=== PATIENT | male | born 1965 | race Caucasian/White ===

== ENCOUNTER 2022-06-28 15:31 | Outpatient (CLI) | payer BC, SELFPAY ==
--- OUTSIDE RECORDS SUMMARY | 2022-06-28 08:05 | XMS_ITS | Encounter Summary ---
:1965 Author Organization [place] Address [address] [place] [id number] Care Team Providers Name Role Phone [facility]- Encounter Details Date Type Department Care Team Description 11/30/2020 Travel Social History Tobacco Use Types Packs/Day Years Used Date Smoking Tobacco: Never Assessed Sex Assigned at Date Recorded Not on file COVID-19 Exposure Response Date Recorded In the last month, have you been in contact with No / Unsure 11/30/2020 1:25 PM CDT someone who was confirmed or suspected to have Coronavirus / COVID-19? documented as of this encounter Plan of Treatment Not on filedocumented as of this encounter Visit Diagnoses Not on filedocumented in this encounter Care Teams Public Health Technologist Relationship Specialty Start Date End Date [facility] PCP - General 11/30/20 [facility]- [address] [place] [address] documented as of this encounter
--- OUTSIDE RECORDS SUMMARY | 2022-06-28 08:05 | XMS_ITS | Encounter Summary ---
:1965 Author Organization [place] Address [address] [place] [id number] Care Team Providers Name Role Phone [facility]- Reason for Visit CV Testing (Routine) - Closed Specialty Diagnoses / Procedures Referred By Contact Refer red To Contact Cardiology Diagnoses Near syncope Chest pain Thong Phan, [facility] Procedures Echo Stress Echocardiogram [facility] DOPPLER ECHO PULSED, F/U OR LIMITED [facility] DOPPLER ECHO COLOR FLOW VELOCITY MAP [facility] ECHO HEART XTHORACIC, STRESS/REST [facility] ECHO TRANSTHORACIC, STRESS/REST W CONTRAST GEOSPATIAL EXTRACTOR ANALYSIS [address] [facility] ECHO TRANSTHORACIC, STR ESS/REST W/O CONTRAST [facility] IV PUSH SINGLE, INITIAL SUBSTANCE [facility] INJECTION, PERFLUTREN LIPID MICROSPHERES, PER ML [facility] STATISTIC IV PUSH SINGLE INITIAL SUBSTANCE [facility] DOPPLER ECHO PULSED, F/U OR LIMITED [facility] [place], [place] DOPPLER ECHO COLOR FLOW V ELOCITY MAP NV ECHO HEART XTHORACIC, STRESS/REST NV INJECTION, PERFLUTREN LIPID MICROSPHERES, PER ML NV IV PUSH SINGLE, INITIAL SUBSTANCE NV ECHO HEART XTHORACIC, STRESS/REST NV ECHO HEART XTHORACIC, STRESS/REST [address] [place] [place] [address] HC DOPPLER ECHO PULSED, F/U OR LIMITED HC DOPPLER ECHO COLOR FLOW VELOCITY MAP HC IV PUSH SINGLE, INITIAL SUBSTANCE HC STATISTIC IV PUSH SINGLE INITIAL SUBSTANCE HC ECHO TRANSTHORACIC, STRESS/[place] [address] HC ECHO TRANSTHORACIC, STRESS/REST W/O C ONTRAST Referral ID Status Reason Start Date Expiration Date Visits Requ ested Visits Authorized [id number] Closed 11/30/2020 11/30/2021 1 1 Encounter Details Date Type Department Care Team Description 12/13/2020 Hospital Encounter [facility], [facility], [facility] [address] [place], [place] [address] [place] [address] [place] [address] [phone] (Wo rk) Social History Tobacco Use Types Packs/Day Years Used Date Smoking Tobacco: Never Assessed Sex Assigned at Date Recorded Not on file COVID-19 Exposure Response Date Recorded In the last month, have you been in contact with No / Unsure 12/13/2020 8:38 AM CDT someone who was confirmed or suspected to have Coronavirus / COVID-19? documented as of this encounter Plan of Treatment Not on filedocumented as of this encounter Procedures Procedure Name Priority Date/Time Associated Diagnosis Comme nts ECHO EXERCISE Routine 12/13/2020 9:35 AM Near syncope Results for this STRESS TEST WITH CDT Chest pain procedure a re in CONTRAST the results section. documented in this encounter Visit Diagnoses Not on filedocumented in this encounter Administered Medications Inactive Administered Medications - up to 3 most recent administrations Medication Order MAR Action Action Date Dose Rate Site perflutren diluted 1mL to 2mL with Given 12/13/2020 9:35 AM CDT 7 mLs saline (OPTISON) diluted injection 3 mL 3 mL, Intravenous, ONCE, On Sun12/13/20 at 1000, For 1 dose, [facility] 0666-1353-72 sodium chloride (PF) 0.9% PF flush 10 mL Given 12/13/2020 9:36 AM CDT 10 mLs 10 mL, Intravenous, ONCE, On Sun12/13/20 at 1000, For 1 dose documented in this encounter Care Teams Rn Long Term Care Relationship Specialty Start Date End Date [facility] PCP - General 11/30/20 [facility]- [address] [place] [address] documented as of this encounter
--- OUTSIDE RECORDS SUMMARY | 2022-06-28 08:05 | XMS_ITS | Clinical Summary ---
:1965 Author Organization [place] Address [address] [place] [address] Care Team Providers Name Role Phone [facility]- Allergies No known active allergies Active Problems Problem Noted Date Type 2 diabetes mellitus 11/30/2020 Benign prostatic hyperplasia 11/30/2020 Hypertension 04/16/2009 Obesity 03/22/2009 Hyperlipidemia 03/22/2009 Social History Tobacco Use Types Packs/Day Years Used Date Smoking Tobacco: Never Assessed Sex Assigned at Date Recorded Not on file Last Filed Vital Signs Vital Sign Reading Time Taken Comments Blood Pressure 147/90 11/30/2020 3:00 PM CDT Pulse 84 11/30/2020 3:00 PM CDT Temperature 36.4 ??C (97.6 ??F) 11/30/2020 1:27 PM CDT Respiratory Rate 24 11/30/2020 1:27 PM CDT Oxygen Saturation 97% 11/30/2020 3:00 PM CDT Inhaled Oxygen Concentration - - Weight 102.1 kg (225 lb) 11/30/2020 1:27 PM CDT Height 170.2 cm (5' 7) 11/30/2020 1:27 PM CDT Body Mass Index 35.24 11/30/2020 1:27 PM CDT Plan of Treatment Health Maintenance Due Date Last Done Comments A1C 1965 ADVANCE CARE PLANNING 1966 ANNUAL REVIEW OF HM ORDERS 1966 CT COLONOGRAPHY 1966 DIABETIC FOOT EXAM 1966 EYE EXAM 1966 FIT-DNA (Cologuard) 1966 FIT 1966 FLEX SIG 1966 HEPATITIS B IMMUNIZATION (1 1966 of 3 - 3-dose series) LIPID 1966 MICROALBUMIN 1966 YEARLY PREVENTIVE VISIT 1966 Pneumococcal Vaccine: 02/18/1972 Pediatrics (0 to 5 Years) and At-Risk Patients (6 to 64 Years) (1 - PCV) COLONOSCOPY 02/18/1976 COLORECTAL CANCER SCREENING 02/18/1976 HIV SCREENING 1981 HEPATITIS C SCREENING 02/18/1984 DTAP/TDAP/TD IMMUNIZATION (1 1991 - Tdap) ZOSTER IMMUNIZATION (1 of 2) 02/18/2016 COVID-19 Vaccine (3 - Booster 12/31/2020 11/05/2020, for Moderna series) 10/08/2020 PHQ-2 (once per calendar 07/23/2021 year) BMP 11/30/2021 11/30/2020 INFLUENZA VACCINE (#1) 2022 IPV IMMUNIZATION Aged Out No longer eligi ble based on patient's age to complete this to [facility] MENINGITIS IMMUNIZATION Aged Out No longe r eligible based on patient's age to complete this to [facility] Insurance Payer Benefit Plan / Subscriber ID Effective Dates Phone Addre ss Type Group BCBS BCBS FED[employer]AL [id number] 2020-Present [phone] [id number] [place] [address] Care Teams Nurse Coordinator Relationship Specialty Start Date End Date [facility] PCP - General 11/30/20 [facility]- [address] [place], [place] [id number]
--- OUTSIDE RECORDS SUMMARY | 2022-06-28 08:05 | XMS_ITS | Encounter Summary ---
:1965 Author Organization [place] Address [address] [place] [address] Care Team Providers Name Role Phone [facility]- Encounter Details Date Type Department Care Team Description 12/13/2020 Travel Social History Tobacco Use Types Packs/Day [...] on filedocumented in this encounter Care Teams Printing Machine Operator Tape Rules Relationship Specialty Start Date End Date [facility] PCP - General 11/30/20 [facility]- [address] [place] [address] documented as of this encounter
--- OUTSIDE RECORDS SUMMARY | 2022-06-28 08:05 | XMS_ITS | Encounter Summary ---
:1965 Author Organization [place] Address [address] [place] [address] Care Team Providers Name Role Phone [facility]- Reason for Referral CV Testing (Routine) - Closed Specialty Diagnoses / Procedures Referred By Contact Refer red To Contact Cardiology Diagnoses Near syncope Chest pain Thong Marquez, DENA Rh Cardiac Services Procedures Echo Stress Echocardiogram [facility] DOPPLER ECHO PULSED, F/U OR LIMITED [facility] DOPPLER ECHO COLOR FLOW VELOCITY MAP [facility] ECHO HEART XTHORACIC, STRESS/REST [facility] ECHO TRANSTHORACIC, STRESS/REST W CONTRAST POWER SYSTEM ENGINEER [address] [facility] ECHO TRANSTHORACIC, STR ESS/REST W/O CONTRAST [facility] IV PUSH SINGLE, INITIAL SUBSTANCE [facility] INJECTION, PERFLUTREN LIPID MICROSPHERES, PER ML [facility] STATISTIC IV PUSH SINGLE INITIAL SUBSTANCE CT DOPPLER ECHO PULSED, F/U OR LIMITED [facility] [place], [place] CT DOPPLER ECHO COLOR FLOW V ELOCITY MAP CT ECHO HEART XTHORACIC, STRESS/REST CT INJECTION, PERFLUTREN LIPID MICROSPHERES, PER ML CT IV PUSH SINGLE, INITIAL SUBSTANCE CT ECHO HEART XTHORACIC, STRESS/REST CT ECHO HEART XTHORACIC, STRESS/REST [address] [facility] [place] [address] HC DOPPLER ECHO PULSED, F/U OR LIMITED HC DOPPLER ECHO COLOR FLOW VELOCITY MAP HC IV PUSH SINGLE, INITIAL SUBSTANCE HC STATISTIC IV PUSH SINGLE INITIAL SUBSTANCE HC ECHO TRANSTHORACIC, STRESS/[place] [address] HC ECHO TRANSTHORACIC, STRESS/REST W/O C ONTRAST Referral ID Status Reason Start Date Expiration Date Visits Requ ested Visits Authorized [id number] Closed 11/30/2020 11/30/2021 1 1 Reason for Visit Reason Comments Chest Pain Encounter Details Date Type Department Care Team Description 11/30/2020 Emergency [facility] Thong Marquez APRN Near syncope; Emergency Dept POWER SYSTEM ENGINEER Chest pain [address] [facility] [place] [phone] [phone] [place], [place] [address] (Wo rk) Social History Tobacco Use Types Packs/Day Years Used Date Smoking Tobacco: Never Assessed Sex Assigned at Date Recorded Not on file COVID-19 Exposure Response Date Recorded In the last month, have you been in contact with No / Unsure 11/30/2020 1:25 PM CDT someone who was confirmed or suspected to have Coronavirus / COVID-19? documented as of this encounter Last Filed Vital Signs Vital Sign Reading [...] Mass Index 35.24 11/30/2020 1:27 PM CDT documented in this encounter Discharge Instructions Discharge InstructionsThong Marquez APRN CNP - 11/30/2020 3:06 PM CDT Your blood sugar was 300 today. Call your primary care provider to discuss either at home monitoringand dietary and weight loss plan for the need to start insulin to better manage your care. AttachmentsThe following attachments cannot be sent through Care Everywhere. 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 following nearsyncopal event pt went and sat down and was some sweaty) Jese Coma Scale - Best Eye Response: 4-->(E4) spontaneous Best Motor Response: 6-->(M6) obeys commands Best Verbal Response: 5-->(V5) oriented Jese Coma Scale Score: 15 Rupal Mack RN - 11/30/2020 1:28 PM CDT Complaints of near syncopal event this afternoon with chest pain and left arm numbness. Complaints of intermittent left arm pain in last week. Denies cardiac hx Thong Marquez APRN CNP - 11/30/2020 1:25 PM CDT History Chief Complaint: Near-Syncope HPI Tracie Rawls is a 55 year old male with a history of type II diabetes mellitus who presents to the ED with daughter for an evaluation for an episode of near- syncope with accompanying lightheadedness/dizziness. For the past 2 weeks, the patient has been experiencing intermittent left shoulder soreness and chest pain both with no radiation and no association with physical activity/exertion. Today, aroundhalf an hour prior to arrival, he was initially sitting at his desk at work after eating lunch and subsequently walked over to talk to someone across the building. During the conversation, he started feeling tingly all over his body and lightheaded/dizzy. He held onto an unspecified object and was also assisted by his friend to a seated position. Of note, he states if he had not held on he would havefallen although he does not believe he would have passed out. He did not have chest tightness/pain or shoulder soreness during this. He denies black vision. Here in the ED, he does not feel tingly nor does he feel lightheaded/dizzy. However, he does feel off which is not new as he has been feeling the same for the last couple of weeks. He mentions he did not have breakfast this morning which is normal for him as he never eats breakfast. He has not experienced this before. He denies a history of cardiac issues/surgeries or migraines. He denies fever, sore throat, cough, rhinorrhea, chest tightness/ pain, shortness of breath, nausea/emesis, leg swelling/pain, diarrhea/constipation, dysuria, or hematuria. He is currently taking blood pressure medications. He has not been checking his blood sugar athome. Review of Systems Constitutional: Negative for fever. HENT: Negative for rhinorrhea and sore throat. Eyes: Negative for visual disturbance. Respiratory: Negative for cough, chest tightness and shortness of breath. Cardiovascular: Negative for chest pain and leg swelling. Gastrointestinal: Negative for constipation, diarrhea, nausea and vomiting. Genitourinary: Negative for dysuria and hematuria. Musculoskeletal: Negative for arthralgias and myalgias. Neurological: Negative for dizziness (subsided), syncope (near syncope) and light-headedness (subsided). All other systems reviewed and are negative. Allergies: The patient has no known allergies. Medications: Lipitor Proscar Glucotrol Lisinopril Flomax Past Medical History: Type II diabetes mellitus Past Surgical History: The patient denies past surgical history. Social History: The patient presented with daughter. Physical Exam Patient Vitals for the past 24 hrs: BP Temp Temp src Pulse Resp SpO2 Height Weight 11/30/20 1328 (!) 165/96 -- -- -- -- -- -- -- 11/30/20 1327 -- 97.6 ??F (36.4 ??C) Temporal 89 24 99 % 1.702 m (5' 7) 102.1 kg (225 lb) Physical Exam General: Alert, No obvious discomfort, well kept, obese Eyes: PERRL, conjunctivae pink no scleral icterus or conjunctival injection ENT: Moist mucus membranes, posterior oropharynx clear without erythema or exudates, No lymphadenopathy, Normal voice Resp: Lungs clear to auscultation bilaterally, no crackles/rubs/wheezes. Good air movement CV: Normal rate and rhythm, no murmurs/rubs/gallops GI: Abdomen soft and non-distended. Normoactive BS. No tenderness, guarding or rebound, No masses Skin: Warm, dry. No rashes or petechiae Musculoskeletal: No peripheral edema or calf tenderness, Normal gross ROM Neuro: Alert and oriented to person/place/time, normal sensation Psychiatric: Normal affect, cooperative, good eye contact Emergency Department Course ECG ECG taken at 1336, ECG read at 1339 Sinus rhythm with occasional premature ventricular complexes. Nonspecific T wave abnormality. Abnormal ECG. Rate [address] interval 144 ms. QRS duration 86 ms. QT/QTc 374/439 ms. P-R-T axes 36 11 11. Laboratory: CBC: WBC 5.4, HGB 13.0 (L), PLT 203 BMP: GLC 295 (H), Ca 8.2 (L), o/w WNL (Creatinine 1.04) Glucose by meter (Collected 1406): 305 (H) Troponin (Collected 1413): <0.015 Emergency Department Course: Reviewed: 1326 I reviewed nursing notes, vitals and past history. Assessments: 1331 My PA-C student obtained history and examined the patient. 1337 I obtained history and examined the patient as noted above. 1458 I rechecked the patient and discussed results. Interventions: 1441: NS 1L IV Bolus Disposition: The patient was discharged to home. Impression & Plan Medical Decision Making: Tracie Rawls is a 55 year old male who presents today for evaluation of near syncopal episode. He was standing talking to a coworker when he became lightheaded and dizzy he felt that if he did not havesupport he would have fallen. His coworker did help him however so he did not suffer any focal. He is diabetic and does not check his blood sugars at home. He did not eat breakfast this morning. His blood sugar was elevated at 300. His laboratory studies were otherwise noncontributory. He had a nonacute EKG and negative troponin. He described left shoulder discomfort and very intermittent sharp chestpain for the past couple of months. He has had no lasting chest pain or shortness of breath and did not have this again today. No evidence of cardiac cause at this point. No focal neurologic deficits. Doubt CVA. Strict return protocols and follow-up particularly regarding his diabetes was discussed. He does appear to be safe and appropriate for outpatient management follow-up and is discharged home. Critical Care time: none Diagnosis: ICD-10-CM 1. Near syncope R55 Echo Stress Echocardiogram 2. Chest pain R07.9 Echo Stress Echocardiogram Discharge Medications: New Prescriptions No medications on file Scribe Disclosure: I, Guerda Blanchard, am serving as a scribe at 1:31 PM on 11/30/2020 to document services personally performed by Thong Marquez APRN CNP based on my observations and the provider's statements to me. Thong Marquez APRN CNP 11/30/20 1546 documented in this encounter Plan of Treatment Not on filedocumented as of this encounter Procedures Procedure Name Priority Date/Time Associated Diagnosis Comme nts ECHO EXERCISE Routine 12/13/2020 9:35 AM Near syncope Results for this STRESS TEST WITH CDT Chest pain procedure a re in CONTRAST the results section. TROPONIN I STAT 11/30/2020 2:13 PM Results f or this CDT procedure are i n the results section. BASIC METABOLIC STAT 11/30/2020 2:13 PM Result s for this PANEL CDT procedure are i n the results section. CBC WITH PLATELETS STAT 11/30/2020 2:13 PM Res ults for this CDT procedure are i n the results section. GLUCOSE BY METER Routine 11/30/2020 2:06 PM Resul ts for this CDT procedure are i n the results section. EKG 12-LEAD, STAT 11/30/2020 1:36 PM Results f or this TRACING ONLY CDT procedure are i n the results section. documented in this encounter Results ECHO EXERCISE STRESS TEST WITH CONTRAST (12/13/2020 9:35 AM CDT) Anatomical Region Laterality Modality Echocardiography Specimen (Source) Anatomical Collection Method Collection Time Re ceived Time Location / / Volume Laterality 12/13/2020 9:15 AM CDT Narrative 12/13/2020 10:43 AM CDT [id number]^JIMMY^THONG^KEL [facility] Echocardiography Laboratory [address] [place] [address] Name: TRACIE RAWLS : 1965 Study Date: 12/13/2020 09:15 AM Age: 55 yrs Gender: Male Patient Location: [facility] Reason For Study: Near syncope, Chest pa in History: Diabetes Ordering Physician: THONG MARQUEZ Referring Physician: DINORAH JONES Performed By: Gilbert Rose RDCS BSA: 2.1 m2 Height: 67 in Weight: 225 lb HR: 83 BP: 120/72 mmHg Medications: Lisinopril,Lipitor Procedure Stress Echo Complete. Contrast Optison. Interpretation Summary This was a normal stress echocardiogram with no evidence of stress-induced ischemia. Stress The patient exercised 6:41. Exercise was stopped due to fatigue. RPP 47565. There was a normal BP response to exerci se. A low workload was achieved. The patient exhibited no chest pain duri ng exercise. Target Heart Rate was achieved. The Monique treadmill score was low risk ( >5 Monique score). The EKG portion of this stress test was negative for inducible ischemia (see echo results below). Normal resting wall motion and no stress -induced wall motion abnormality. The visual ejection fraction is estimate d at >70%. Left ventricular cavity size decreases w ith exercise. Global LV systolic function augments wit h exercise. Baseline Normal baseline electrocardiogram. The patient is in normal sinus rhythm. Normal left ventricular function and wal l motion at rest. The visual ejection fraction is estimate d at 55-60%. No hemodynamically significant valvular abnormalities on 2D or color flow imaging. Stress Results ? Protocol: ??Brayden ?Maximum Predicted HR: ?? 166 bpm ? Target HR: 141 bpm ?% Maximum Predicted HR: 92 % ? Stage ??Dura tionHeart Rate ??BP ?Comment ? (mm:ss) ?? (bpm) ?Stage 1 ?? 3: 00 ?120 ?? 152/72 ?Stage 2 ?? 3: 00 ?142 ?? 164/72 ?Stage 3 ?? 0: 41 ?153 ?/ ??RPP: 07078 ? RecoveryR ??6:0 0 ?99 ?140/72 ? Stress Duration: ?? 6:41 mm:ss * ?Recovery Time: 6:00 mm:ss ? Maximum Stress HR: 153 bpm * ? METS: ?8 Doppler Measurements & Calculations Ao V2 max: 143.0 cm/sec Ao max P.0 mmHg Report approved by: Edgar Morrison 10:43 AM Procedure Note Ceferino Au MD - 12/13/2020Form atting of this note might be different from the original. [id number] [facility] [id number]^JIMMY^THONG^KEL [facility] Echocardiography Laboratory [address] [place] [address] Name: TRACIE RAWLS : 1965 Study Date: 12/13/2020 09:15 AM Age: 55 yrs Gender: Male Patient Location: [facility] Reason For Study: Near syncope, Chest pa in History: Diabetes Ordering Physician: THONG MARQUEZ Referring Physician: DINORAH JONES Performed By: Gilbert Rose RDCS BSA: 2.1 m2 Height: 67 in Weight: 225 lb HR: 83 BP: 120/72 mmHg Medications: Lisinopril,Lipitor Procedure Stress Echo Complete. Contrast Optison. Interpretation Summary This was a normal stress echocardiogram with no evidence of stress-induced ischemia. Stress The patient exercised 6:41. Exercise was stopped due to fatigue. RPP 18109. There was a normal BP response to exerci se. A low workload was achieved. The patient exhibited no chest pain duri ng exercise. Target Heart Rate was achieved. The Monique treadmill score was low risk ( >5 Monique score). The EKG portion of this stress test was negative for inducible ischemia (see echo results below). Normal resting wall motion and no stress -induced wall motion abnormality. The visual ejection fraction is estimate d at >70%. Left ventricular cavity size decreases w ith exercise. Global LV systolic function augments wit h exercise. Baseline Normal baseline electrocardiogram. The patient is in normal sinus rhythm. Normal left ventricular function and wal l motion at rest. The visual ejection fraction is estimate d at 55-60%. No hemodynamically significant valvular abnormalities on 2D or color flow imaging. Stress Results Protocol: Brayden Maximum Predicted HR: 1 66 bpm Target HR: 141 bpm % Maximum Predicted HR: 92 % Stage DurationHeart Rate BP Comment (mm:ss) (bpm) Stage 1 3:00 120 152/72 Stage 2 3:00 142 164/72 Stage 3 0:41 153 / RPP: 44511 RecoveryR 6:00 99 140/72 Stress Duration: 6:41 mm:ss * Recovery Time: 6:00 mm:ss Maximum Stress HR: 153 bpm * METS: 8 Doppler Measurements & Calculations Ao V2 max: 143.0 cm/sec Ao max P.0 mmHg Report approved by: Edgar Morrison 10:43 AM Thong Marquez APRN POWER SYSTEM ENGINEER CV ECHO ORDERABLES Troponin I (11/30/2020 2:13 PM CDT) athologist Signature Troponin I ES <0.015 0.000 - 11/30/2020 [place] 0.045 ug/L 2:42 PM [facility] Comment: The 99th percentile for upper reference range is 0.045 ug/L. ??Troponin values in the range of 0.045 - 0.120 ug/L may b e associated with risks of adverse clinical events. Specimen Anatomical Collection Method Collection Time Receive d Time (Source) Location / / Volume Laterality Blood 11/30/2020 2:13 PM 2:17 CDT PM CDT Thong Marquez APRN POWER SYSTEM ENGINEER LAB - BLOOD ORDERABLES Performing Organization Address City/State/ZIP Code Phon e Number [place] [address] [address] [address] [facility] [address] [phone] (ABNORMAL) Basic metabolic panel (11/30/2020 2:13 PM CDT) athologist [facility] Sodium 133 133 - 144 11/30/2020 [place] mmol/L 2:30 PM [facility] Potassium 3.9 3.4 - 5.3 11/30/2020 [place] mmol/L 2:30 PM [facility] Chloride 100 94 - 109 11/30/2020 [place] mmol/L 2:30 PM [facility] Carbon Dioxide 28 20 - 32 11/30/2020 [place] mmol/L 2:38 PM [facility] Anion Gap 5 3 - 14 11/30/2020 [place] mmol/L 2:38 PM [facility] Glucose 295 (H) 70 - 99 11/30/2020 [place] mg/dL 2:38 PM [facility] Urea Nitrogen 17 7 - 30 11/30/2020 [place] mg/dL 2:38 PM [facility] Creatinine 1.04 0.66 - 11/30/2020 [place] 1.25 mg/dL 2:38 PM [facility] GFR Estimate 81 >60 11/30/2020 [place] mL/min/{1. 2:38 PM [facility] 73_m2} [facility]OS[facility] Comment: Non GFR Calc Starting 07/09/2018, serum creatinine ba sed estimated GFR (eGFR) will be calculated using the Chronic Kidney Dise [facility] [place] Epidemiology Collaboration (CKD-EPI) equation. GFR Estimate If >90 >60 mL/min/{1.73_m2} 11/30/2020 2: 38 PM [facility] Comment: GFR Calc Starting 07/09/2018, serum creatinine ba sed estimated GFR (eGFR) will be calculated using the Chronic Kidney Dise [facility] [place] Epidemiology Collaboration (CKD-EPI) equation. Calcium 8.2 (L) 8.5 - 10.1 mg/dL 11/30/2020 2:38 PM [facility] Specimen Anatomical Collection Method Collection Time Receive d Time (Source) Location / / Volume Laterality Blood 11/30/2020 2:13 PM 2:17 CDT PM CDT Thong Marquez APRN POWER SYSTEM ENGINEER LAB - BLOOD ORDERABLES Performing Organization Address City/State/ZIP Code Phon e Number [facility] [address] [place], [place] [address] [facility] [address] [place], [place] [address] [phone] (ABNORMAL) CBC (platelets, no diff) (11/30/2020 2:13 PM CDT) Analysis Performed At Patho logist Time Signature WBC 5.4 4.0 - 11.0 11/30/2020 [facility] 10e9/L 2:22 PM [facility] RBC Count 4.42 4.4 - 5.9 11/30/2020 [facility] 10e12/L 2:22 PM [facility] Hemoglobin 13.0 (L) 13.3 - 11/30/2020 [facility] 17.7 g/dL 2:22 PM [facility] Hematocrit 38.6 (L) 40.0 - 11/30/2020 [facility] 53.0 % 2:22 PM [facility] MCV 87 78 - 100 11/30/2020 [facility] fl 2:22 PM [facility] MCH 29.4 26.5 - 11/30/2020 [facility] 33.0 pg 2:22 PM [facility] MCHC 33.7 31.5 - 11/30/2020 [facility] 36.5 g/dL 2:22 PM [facility] RDW 12.4 10.0 - 11/30/2020 [facility] 15.0 % 2:22 PM [facility] Platelet Count 203 150 - 450 11/30/2020 [facility] 10e9/L 2:22 PM [facility] Specimen Anatomical Collection Method Collection Time Receive d Time (Source) Location / / Volume Laterality Blood 11/30/2020 2:13 PM 1 2:17 CDT PM CDT Thong Marquez RES COUNSELOR POWER SYSTEM ENGINEER LAB - BLOOD ORDERABLES Performing Organization Address City/State/ZIP Code Phon e Number [facility] [address] [address] [facility] [address] [place] [address] [address] [phone] (ABNORMAL) Glucose by meter (11/30/2020 2:06 PM CDT) P athologist Signature Glucose 305 (H) 70 - 99 11/30/2020 POINT OF CARE mg/dL 2:13 PM CDT TEST, GLUCOSE Specimen Anatomical Collection Method Collection Time Receive d Time (Source) Location / / Volume Laterality 11/30/2020 2:06 PM 1 2:13 CDT PM CDT Thong Moniques RES COUNSELOR POWER SYSTEM ENGINEER LAB - BEAKER POCT Performing Organization Address City/State/ZIP Code Phon e Number [facility] POINT OF CARE TEST, GLUCOSE POINT OF CARE TEST, GLUCOSE EKG 12 lead (11/30/2020 1:36 PM CDT) [facility] gist Method Time Signature Interpretation ECG Click View RADIOLOGY Image link RESULTS to view waveform and result Specimen (Source) Anatomical Collection Method Collection Time Re ceived Time Location / / Volume Laterality 11/30/2020 1:36 PM CDT Thong Moniques RES COUNSELOR POWER SYSTEM ENGINEER ECG ORDERABLES Performing Organization Address City/State/ZIP Code Phon e Number RADIOLOGY RESULTS documented in this encounter Visit Diagnoses Diagnosis Near syncope Syncope and collapse Chest pain Chest pain, unspecified documented in this encounter Administered Medications Inactive Administered Medications - up to 3 most recent administrations Medication Order MAR Action Action Date Dose Rate Site 0.9% sodium chloride BOLUS New Bag 11/30/2020 2:41 PM CDT 1,000 mLs 2000 mL/hr Intravenous, 1,000 mL, ONCE, at 2,000 mL/hr, Administer over 30 Minutes, On Sun11/30/20 at 1350, For 1 dose, After ortho stats documented in this encounter Active and Recently Administered Medications Times are shown in CDT. Scheduled Medication Order 11/28/2020 11/29/2020 11/30/2020 0.9% sodium chloride BOLUS (COMPLETED) 1441 (New Bag - Provider: Nehemias Mcduffie, CLARISSA)1515 (Stopped - Provider: Nehemias Mcduffie, CLARISSA) Intravenous, 1,000 mL, ONCE, at 2,000 mL /hr, Administer over 30 Minutes, 11/30/20 at 1350, For 1 dose, After ortho stats documented in this encounter Care Teams Gravel Hauler Relationship Specialty Start Date End Date [facility] And PCP - General 11/30/20 [facility] [address] [place] [address] documented as of this encounter
--- OUTSIDE RECORDS SUMMARY | 2022-06-28 08:05 | XMS_ITS ---
:1965 Author Care Team Providers Name Role Phone [facility] Referring Provider [phone] Allergies Code Code System Name Reaction Severity Status Onset NKDA ? Medications Name Status Start Date Stop Date ? ? atorvastatin 40 mg tablet Active ? Not av ailable TAKE 1 TABLET BY MOUTH AT BEDTIME finasteride 5 mg tablet Active ? Not avai lable TAKE 1 TABLET BY MOUTH ONCE DAILY glipizide ER 10 mg tablet, extended release 24 hr Completed ? 10/21/2021 TAKE 2 TABLETS BY MOUTH ONCE DAILY IF B LOOD SUGAR GOES BELOW 80 THEN DECREASE TO 1 TAB ONCE DAILY IF STILL LOW STOP GLIPIZIDE AND CONTACT OFFICE glipizide ER 5 mg tablet, extended release 24 hr Completed ? 10/21/2021 lisinopril 10 mg-hydrochlorothiazide 12.5 mg tablet Active ? Not available lisinopril 20 mg-hydrochlorothiazide 12.5 mg tablet Completed ? 10/21/2021 TAKE 1 TABLET BY MOUTH ONCE DAILY metformin 1,000 mg tablet Active ? Not av ailable TAKE 1 TABLET BY MOUTH TWICE DAILY WITH MEALS OneTouch Delica Plus Lancet 33 gauge Active ? Not available USE 1 TO CHECK GLUCOSE TWICE DAILY OneTouch Verio test strips Active ? Not a vailable USE 1 STRIP TO CHECK GLUCOSE TWICE DAILY tamsulosin 0.4 mg capsule Active ? Not av ailable TAKE 2 CAPSULES BY MOUTH ONCE DAILY Trulicity 0.75 mg/0.5 mL subcutaneous pen injector Active ? Not available Notes: truelicty .75/.5 Once a week/da y Problems None recorded. Procedures Date Name Performed by ? 07/24/2016 Diagnostic Colonoscopy Information not a vailable Notes: Colonoscopy Results Lab Results None recorded. Past Encounters Encounter Date Diagnosis Provider 10/21/2021 Slowing of Urinary Stream Romulo vital MD: [id number] [facility], [address], [place] [address], Ph. Social History Tobacco Smoking Status Never Smoker Vaccine List Vaccine Type COVID-19 (SARS-COV-2) vaccine, unspecifi ed 07/06/2021 Plan of Care Reminders Provider Appointments None recorded. ? ? Lab None recorded. ? ? Referral None recorded. ? ? Procedures None recorded. ? ? Surgeries None recorded. ? ? Imaging None recorded. ? ? Vitals Height Weight BMI 5 ft 7 in 220 lbs 34.5 kg/m2
--- OUTSIDE RECORDS SUMMARY | 2022-06-28 08:05 | XMS_ITS | Clinical Summary ---
:1965 Author Organization [facility] [place] [address] Care Team Providers Name Role Phone Randy Gil MD Primary Care Provider [phone] Allergies No known active allergies Medications Medication Sig Dispensed Refills Start Date End Date Status atorvastatin (LIPITOR) 40 mg 0 04/02/2020 Active tablet aspirin chewable 81 mg chewable Daily 0 Active tablet finasteride (PROSCAR) 5 mg tablet 0 2019 Active glipiZIDE extended-release 0 04/02/2020 Active (GLUCOTROL XL) 10 mg Extended-Release tablet lisinopril-hydrochlorothiazide 0 0 Active (10-12.5 mg) tablet (PRINZIDE; ZESTORETIC) metFORMIN (GLUCOPHAGE) 1,000 mg 0 04/02/20 20 Active tablet tamsulosin (FLOMAX) 0.4 mg capsule 0 04/05 Active Active Problems Not on file Social History Tobacco Use Types Packs/Day Years Used Date Never Smoker Smokeless Tobacco: Former User Tobacco Cessation: Counseling Given: Yes Alcohol Use Standard Drinks/Week Comments Yes 0 (1 standard drink = 0.6 oz pure alcoho l) Alcohol Habits Answer Date Recorded How often do you have a drink containing alcohol? 2-3 times a week 05/12/2020 How many drinks containing alcohol do you have on a 3 or 4 05/12/2020 typical day when you are drinking? How often do you have six or more drinks on one Never 05/12/2020 occasion? Comment: Not asked Sex Assigned at Date Recorded Not on file Obstetrics History Last Filed Vital Signs Vital Sign Reading Time Taken Comments Blood Pressure 129/83 12/29/2020 8:21 AM CDT Pulse 77 12/29/2020 8:21 AM CDT Temperature - - Respiratory Rate 18 05/12/2020 9:33 AM CDT Oxygen Saturation 99% 12/29/2020 8:21 AM CDT Inhaled Oxygen Concentration - - Weight 103.1 kg (227 lb 6.4 oz) 12/29/2020 8:21 AM CDT Height - - Body Mass Index - - Plan of Treatment Health Maintenance Due Date Last Done Comments COVID-19 vaccine series (#1) 1966 Tdap 1977 Depression screening for age 12+ 1978 HIV for age 15-65 1981 BMI (ht and wt on same day) for age 18+ 02/18/1984 Hepatitis C screening for age 18-79 02/18/1984 Tetanus booster 1986 Colonoscopy through age 75 2011 Lipids for age 45-75 2011 Zoster (shingles) series for age 50+ (1 of 2) 02/18/2016 Influenza for age 50-64 03/23/2022 Results Not on filefrom Last 3 Months Insurance Payer Benefit Plan / Subscriber ID Effective Dates Phone Addre ss Type Group [employer] [id number] 2020-Present [address] EMPLOYEE [place] [id number] (Home) W [phone] Noah WILKES (Work) [id number] [employer] [address] (Home) W [phone] Noah WILKES (Work) [id number] Care Teams 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
[2022-06-28 14:44] LABS: Chloride* 101 mmol/L (96-114)
[2022-06-28 14:45] LABS: Albumin* 4.5 g/dL (3.3-5.0); Potassium* 4.6 mmol/L (3.6-5.1); Sodium* 139 mmol/L (135-149)
[2022-06-28 14:47] LABS: Carbon Dioxide* 29 mmol/L (20-32); Cholesterol* 104 mg/dL (90-199); Creatinine* 1.1 mg/dL (0.5-1.5); Estimated Glomerular Filt Rate 79 ml/min
[2022-06-28 14:48] LABS: Bilirubin Total* 2.2 mg/dL (0.1-1.5)
[2022-06-28 14:49] LABS: Alanine Aminotransferase* 27 U/L (4-50); Alkaline Phosphatase* 71 U/L (40-150); Aspartate Amino Transferase* 23 U/L (12-35); Blood Urea Nitrogen* 15 mg/dL (7-30); Calcium* 9.5 mg/dL (8.4-10.6); Creatinine Urine 164.1 mg/dL; Glucose* 123 mg/dL (60-115); HDL Cholesterol* 41 mg/dL (>=40); LDL Cholesterol Calculated 38 mg/dL (<100); Triglycerides* 127 mg/dL (40-149)
[2022-06-28 14:52] LABS: Microalbumin Creatinine Ratio 40 mg/g (0-30); Microalbumin Urine 8 mg/dL
[2022-06-28 15:06] LABS: PSA Screen* 0.41 ng/mL (0.10-4.00)
== END 2022-06-28 15:32 | disposition home or self-care (01) ==
PROVIDERS: PCP Family Medicine; Visit Provider Family Medicine
DX: E78.5 Hyperlipidemia, unspecified (principal); E11.9 Type 2 diabetes mellitus without complications; Z12.5 Encounter for screening for malignant neoplasm of prostate
CPT/HCPCS: 80053; 80061; 82043; 82570; 84153

== ENCOUNTER 2022-08-14 07:05 | Outpatient (CLI) | payer BC, SELFPAY | END 2022-08-14 07:06 | disposition home or self-care (01) | LOC: OP CLINIC 07:06 | PROVIDERS: PCP Family Medicine; Visit Provider Surgery | DX: Z12.11 Encounter for screening for malignant neoplasm of colon (principal); K63.5 Polyp of colon; K63.89 Other specified diseases of intestine; K64.4 Residual hemorrhoidal skin tags; Z86.010 Personal history of colon polyps | CPT/HCPCS: 45380; 45385; 88305; 99153; J2250; J3010 ==

== ENCOUNTER 2023-08-07 07:01 | Outpatient (CLI) | payer BC, SELFPAY ==
--- OUTSIDE RECORDS SUMMARY | 2023-08-07 07:06 | XMS_ITS | Referral Summary ---
Author Name Unknown Organization [facility] Address [address] [place] [address] Care Team Providers Care Orthodontic Technician Assistant Name Role Phone [facility]- Primary Care Provider Allergies No known active allergies Active Problems Problem Noted Date Diagnosed Date Type 2 diabetes mellitus 11/30/2020 Benign prostatic hyperplasia 11/30/2020 Hypertension 04/16/2009 Obesity 03/22/2009 Hyperlipidemia 03/22/2009 Social History Tobacco Use Types Packs/Day Years Used Date Smoking Tobacco: Never Assessed Adolescent Education Answer Date Record ed Getting School Help Needed Not on file 04/29 Sex and Gender Information Value Date Recorded Sex Assigned at Not on file Gender Identity Not on file Sexual Orientation Not on file Last Filed Vital Signs Vital Sign Reading Time Taken Comments Blood Pressure 147/90 11/30/2020 3:00 PM CDT Pulse 84 11/30/2020 3:00 PM CDT Temperature 36.4 ??C (97.6 ??F) 11/30/2020 1:27 PM CD T Respiratory Rate 24 11/30/2020 1:27 PM CDT Oxygen Saturation 97% 11/30/2020 3:00 PM CDT Inhaled Oxygen Concentration - - Weight 102.1 kg (225 lb) 11/30/2020 1:27 PM CDT Height 170.2 cm (5' 7) 11/30/2020 1:27 PM CDT Body Mass Index 35.24 11/30/2020 1:27 PM CDT Plan of Treatment Not on file Care Teams Orthodontic Technician Assistant Relationship Specialty Start Date End Date [facility]- [address] [place] [address] PCP - General 11/30/20
--- OUTSIDE RECORDS SUMMARY | 2023-08-07 07:06 | XMS_ITS | Data Portability ---
Author Name Unknown Address [address] [place] [address] Phone [phone] Organization [facility] Address [address] [place] [address] Care Team Providers Care City Secretary Name Role Phone [facility] Referring Provider Assessment No assessment recorded. Plan of Treatment Reminders Order Date Submit Date Provider Last Modified By Organization Details Last Modified Time Details Appointments None record ed. Lab None record ed. Referral None record ed. Procedures None record ed. Surgeries None record ed. Imaging None record ed. Medication Orders None record ed. Patient TargetsNo targets recorded. Patient InstructionsNo instructions recorded. Reason for Referral None Reported. Results Created Date Observation Date Name Description Value Unit Range Abnormal Flag LastModifiedBy Organization Detail LastModifiedTime 06/03/20 20 05/12/2020 measu remen t of post- voidi ng resid ual urine and/o r bladd er capac ity (PROC ) No observ ation record ed. [email or web address] Not Available 10/21/2021 17:18:26 Result Notes None recorded. Procedures Surgical History Date Name Laterality Status Provider Name and Address Organization Details Recorded Time 10/22/19 22 Cystoscopy- male completed Romulo Faulkner MD [address] [facility],[address], [place], [address], [facility] 10/21/2021 17:19:34 07/24/19 17 Diagnostic colonoscopy completed Not Available Health Note 10/17/2021 22:15:57 Imaging Results Imaging Date Name Status LastModified by Organiz ation Details LastModified Time 05/12/2020 measurement of post-voiding residual urine and/or bladder capacity (PROC) completed [email or web address] Information not available 10/21/2021 17:18:26 Procedure Notes None recorded. Medical Equipment None Reported. Allergies No known drug allergies Medications Name Sig Start Date Stop Date Status Note LastModified by Organization Details LastModified Time atorvasta tin 40 mg tablet TAKE 1 TABLET BY MOUTH AT BEDTIME active Not Available Not Available No t Available lisinopri l 20 mg-hydroc hlorothia zide 12.5 mg tablet TAKE 1 TABLET BY MOUTH ONCE DAILY 10/21 completed Not Available Not Available Not Available glipizide ER 10 mg tablet, extended release 24 hr TAKE 2 TABLETS BY MOUTH ONCE DAILY IF BLOOD SUGAR GOES BELOW 80 THEN DECREASE TO 1 TAB ONCE DAILY IF STILL LOW STOP GLIPIZID E AND CONTACT OFFICE 10/21 completed Not Available Not Available Not Available glipizide ER 5 mg tablet, extended release 24 hr 10/21 completed HN: Patient reports no longer taking Not Available Not Available Not Available tamsulosi n 0.4 mg capsule TAKE 2 CAPSULES BY MOUTH ONCE DAILY active Not Available Not Available No t Available metformin 1,000 mg tablet TAKE 1 TABLET BY MOUTH TWICE DAILY WITH MEALS active Not Available Not Available No t Available lisinopri l 10 mg-hydroc hlorothia zide 12.5 mg tablet active HN: Patient reports taking Not Available Not Available Not Available finasteri de 5 mg tablet TAKE 1 TABLET BY MOUTH ONCE DAILY active Not Available Not Available No t Available OneTouch Verio test strips USE 1 STRIP TO CHECK GLUCOSE TWICE DAILY active Not Available Not Available No t Available Trulicity 0.75 mg/0.5 mL subcutane ous pen injector INJECT 1 SYRINGE SUBCUTAN EOUSLY ONCE A WEEK active Not Available Not Available No t Available OneTouch Delica Plus Lancet 33 gauge USE 1 TO CHECK GLUCOSE TWICE DAILY active Not Available Not Available No t Available Vitals Date Recorded Body mass index (BMI) Body height Body weight Provider Name and Address Organization Details Last Updated DateTime 10/21/2021 34.5 kg/m2 170.18 cm 77766.7300 924269 g Not Available Health Note 10/21/2021 14:49:39 Social History Question Answer Notes LastModified by Organizat ion Details LastModified Time Tobacco Smoking Status Never Smoker Not Available Health Note 10/17/2021 22:15:58 What Is Your Level Of Alcohol Consumption? Moderate [email or web address] Information not available 10/17/2021 What Is Your Level Of Caffeine Consumption? Moderate [email or web address] Information not available 10/17/2021 How Much Tobacco Do You Chew? None [email or web address] Information not available 10/17/2021 Do You Or Have You Ever Used E-cigarettes Or Vape? Never Used Electronic Cigarettes [email or web address] Information not available 10/17/2021 What Was The Date Of Your Most Recent Tobacco Screening? 10/21/2021 [email or web address] Information not available 10/17/2021 What Is Your Relationship Status? [email or web address] Information not available 10/17/2021 Do You Or Have You Ever Used Smokeless Tobacco? Former Smokeless Tobacco User [email or web address] Information not available 10/17/2021 Do You Use Any Illicit Or Recreational Drugs? No [email or web address] Information not available 10/17/2021 Sex: Male Functional Status None recorded. Mental Status None recorded. Family History Relationship Description Onset Age of this Age Resolved Age Notes Father No current problems or disability Mother No current problems or disability Medical History Condition Response Sexually Transmitted Infection N Diabetes Y Bleeding Disorder N High Blood Pressure Y Kidney Stones N Cancer N Depression Y Lung Disease N High Cholesterol N GERD/Acid Reflux N Heart Disease N Immunizations Vaccine Type Date Status Provider Name and Address Organization Details Recorded Time SARS-COV-2 (COVID-19) vaccine, UNSPECIFIED 07/06/2021 completed Not Available Health Note 10/17/2021 22:16:02 Past Encounters Encounter ID Performer Location Encounter Start Date Encounter Closed Date Diagnosis/Indication [id number] Romulo Faulkner MD [address] [address] 10/21/2021 14:49:34 10/24/2021 09:27:07 Slowing of urinary stream Health Concerns Section Related Observation LastModified by Organization Detai ls LastModified Time None Recorded Concern Status LastModified by Organization Details LastModified Time None Recorded Advance Directives Directive None Recorded Payers Encounter Date Sequence Insurance Name Policy Number Policy Pruett Covered Member ID Pruett Member ID Guarantor Name 10/21/2021 1 [place] [employer]OYEE [employer]GRAM 112 Cassi Rawls [id number] [place] [employer] Notes Date Note Type Note Provider Name and Address Organization Details Recorded Time 10/21/2021 text/html HPI Notes: Previously seen by Dr. Bceerra for BPH. Slow urinary stream. Previously had a discussion about surgical intervention. Currently combination medication with finasteride and alpha. progressive for a year. Erectile dysfunction. Optic neuritis not a candidate for PDE 5. Previously had a discussion about injections PSA screening Chief complaint: Erectile Dysfunction, reason listed below Erectile Dysfunction: Began: 8 Months ago Onset: Gradually History of injury: no Ability to maintain erection: Sometimes Severity: Moderate Interference with their personal, social, or work life: Definite but manageable Progression: Staying the same overall Other Urological Concern: Other Urological Concern: Slow stream Began: 2 Years ago Frequency: Monthly Associated symptoms: 2 people cab pee in the time it takes me Worse with: Same Better with: Nothing Severity: Moderate Progression: Staying the same, getting worse overall Romulo Faulkner MD [address] [facility],[address], [place], [address], [facility] 10/21/2021 17:20:32
--- OUTSIDE RECORDS SUMMARY | 2023-08-07 07:06 | XMS_ITS | Clinical Summary ---
Author Name Unknown Organization [facility] Address [address] [place] [address] Care Team Providers Care Robotic Toy Inventor Name Role Phone [facility]- Primary Care Provider Allergies No known [...] DIABETIC FOOT EXAM 1966 EYE EXAM 1966 FIT 1966 FLEX SIG 1966 HEPATITIS B IMMUNIZATION (1 of 3 - 3-dose series) 1966 LIPID 1966 MICROALBUMIN 1966 YEARLY PREVENTIVE VISIT 1966 sDNA (Cologuard) 1966 Pneumococcal Vaccine: Pediatrics (0 to 5 Years) and At-Risk Patients (6 to 64 Years) (1 of 2 - PCV) 02/18/1972 HIV SCREENING 1981 HEPATITIS C SCREENING 02/18/1984 DTAP/TDAP/TD IMMUNIZATION (1 - Tdap) 1991 ZOSTER IMMUNIZATION (1 of 2) 02/18/2016 BMP 11/30/2021 11/30/2020 COVID-19 Vaccine (3 - 2022-2 4 season) 2023 11/05/2020, 10/08/2020 INFLUENZA VACCINE (#1) 2023 PHQ-2 (once per calendar year) 2023 COLONOSCOPY 08/14/2032 08/14/2022 COLORECTAL CANCER SCREENING 08/14/2032 HPV IMMUNIZATION Aged Out No longer e ligible based on patient's age to complete this topic IPV IMMUNIZATION Aged Out No longer e ligible based on patient's age to complete this topic MENINGITIS IMMUNIZATION Aged Out No l onger eligible based on patient's age to complete this topic RSV MONOCLONAL ANTIBODY Aged Out No l onger eligible based on patient's age to complete this topic Care Teams Robotic Toy Inventor Relationship Specialty Start Date End Date [facility]- [address] [place], [place] [id number] PCP - General 11/30/20
--- OUTSIDE RECORDS SUMMARY | 2023-08-07 07:06 | XMS_ITS | Clinical Summary ---
Author Name Unknown Organization [facility] Address [place], [place] [address] Care Team Providers Care Manager Export Name Role Phone Randy Gil MD Primary Care Provider [phone] Allergies No known active allergies Medications Medication Sig Dispensed Refills Start Date End Date Status atorvastatin (LIPITOR) 40 mg tablet 0 04/02/2020 Active aspirin chewable 81 mg chewable tablet Daily 0 Active finasteride (PROSCAR) 5 mg tablet 0 04/05/2020 Active glipiZIDE extended-release (GLUCOTROL XL) 10 mg Extended-Release tablet 0 04/02/2020 A ctive lisinopril-hydrochlorothiazide (10-12.5 mg) tablet (PRINZIDE; ZESTORETIC) 0 04/05/2020 Active metFORMIN (GLUCOPHAGE) 1,000 mg tablet 0 04/02/2020 Active tamsulosin (FLOMAX) 0.4 mg capsule 0 04/05/2020 Active Social History Tobacco Use Types Packs/Day Years Used Date Smoking Tobacco: Never Smokeless Tobacco: Former Tobacco Cessation:Counseling Given: Yes Alcohol Use Standard Drinks/Week Comments Yes 0 (1 standard drink = 0.6 oz pur e alcohol) Sex and Gender Information Value Date Recorded Sex Assigned at Not on file Gender Identity Not on file Sexual Orientation Not on file Obstetrics History Last Filed [...] age 18+ 02/18/1984 Hepatitis C screening for ag e 18-79 02/18/1984 Tetanus booster 1986 Colonoscopy through age 75 2011 Lipids for age 45-75 2011 Zoster (shingles) series for age 50+ (1 of 2) 02/18/2016 Influenza for age 50-64 03/23/2023 Pneumococcal series for age 6-64 Aged Out No longer eligible based on patient's age to complete this topic Care Teams Manager Export Relationship Specialty Start Date End Date Randy Gil MD [facility] [place] [address] PCP - General Family Practice 05/12/20
== END 2023-08-07 07:02 | disposition home or self-care (01) ==
PROVIDERS: PCP Family Medicine; Visit Provider Family Medicine
DX: E78.5 Hyperlipidemia, unspecified (principal); I10 Essential (primary) hypertension; N40.0 Benign prostatic hyperplasia without lower urinary tract symptoms; Z11.3 Encounter for screening for infections with a predominantly sexual mode of transmission
CPT/HCPCS: 80053; 80061; 82043; 82570; 82607; 86803; G0103

== ENCOUNTER 2024-08-18 10:03 | Outpatient (CLI) | payer BC, SELFPAY | END 2024-08-18 10:04 | disposition home or self-care (01) | PROVIDERS: PCP Family Medicine; Visit Provider Family Medicine | DX: E11.39 Type 2 diabetes mellitus with other diabetic ophthalmic complication (principal); E78.2 Mixed hyperlipidemia; I10 Essential (primary) hypertension; R80.9 Proteinuria, unspecified; R35.1 Nocturia; N40.1 Benign prostatic hyperplasia with lower urinary tract symptoms; Z12.5 Encounter for screening for malignant neoplasm of prostate | CPT/HCPCS: 80053; 80061; 82043; 82570; 82607; G0103 ==

== ENCOUNTER 2025-04-09 06:58 | Outpatient (CLI) | payer BC, SELFPAY ==
--- NOTE | 2025-04-09 07:15 | CRLHL7_ITS ---
For Patients: As a result of the Cures Act, medical imaging exams and procedure reports are released immediately into your electronic medical record. You may view this report before your referring provider. If you have questions, please contact your health care provider. CLINICAL HISTORY: ATHEROSCLEROTIC HEART DISEASE TECHNIQUE: The carotid circulations and the vertebral arteries in the neck were examined with hines-scale ultrasound, color-flow and Doppler spectral analysis. Degrees of stenosis were determined using SRU 2002 Consensus Panel Criteria. FINDINGS: Sonographic images demonstrate no evidence of atherosclerotic plaque formation or suspicious soft tissue mass. There was antegrade blood flow demonstrated within the vertebral arteries and the subclavian arteries demonstrated a normal triphasic waveform. The spectral Doppler tracings of the common carotid, internal and external carotid arteries demonstrate no abnormal turbulence or spectral broadening. There was no significant elevation of peak systolic blood flow which would indicate a hemodynamically-significant stenosis by SRU criteria. The ICA/CCA peak systolic velocity ratio measures 0.6 on the right and 0.8 on the left. IMPRESSION: Normal carotid ultrasound. Dictated by Rio Shirley MD @ 04/09/2025 9:40:48 AM (Electronically Signed)
== END 2025-04-09 06:59 | disposition home or self-care (01) ==
LOC: US 06:59
PROVIDERS: PCP Family Medicine; Visit Provider Family Medicine
DX: I25.10 Atherosclerotic heart disease of native coronary artery without angina pectoris (principal); E11.39 Type 2 diabetes mellitus with other diabetic ophthalmic complication; I10 Essential (primary) hypertension; E78.2 Mixed hyperlipidemia
CPT/HCPCS: 93880